=== PATIENT | male | born 1945 | race Caucasian/White ===

== ENCOUNTER 2018-10-02 08:10 | Observation (INO) | payer OTHER ==
--- NOTE | 2018-09-30 14:55 | NUR ---
BIO REP AWARE CALL BIO SPOKE WITH JORGE FOR PATIENT APPT UPGRADE ON 10-02-18
[2018-09-30 15:00] VITALS: BP 92/51
[2018-09-30 15:03] LABS: EOSINOPHILS % (AUTO) 0.5 % (0.0-8.0); HEMATOCRIT 40.5 % (42-54); LYMPHOCYTES % (AUTO) 19.5 % (21.0-51.0); MEAN CORPUSCULAR HEMOGLOBIN 32.2 pg (27.0-33.0); MEAN CORPUSCULAR HGB CONC 33.6 g/dL (32.0-36.0); MEAN CORPUSCULAR VOLUME 95.9 fL (79-99); MONOCYTES % (AUTO) 8.1 % (3.0-13.0); NEUTROPHILS % (AUTO) 70.9 % (40.0-77.0); NUCLEATED RED BLOOD CELLS 0.1 % (0.0-0.19); PLATELET COUNT (AUTO) 153 K/uL (130-400); RED BLOOD CELL COUNT(AUTO) 4.22 MIL/uL (4.50-6.20); RED CELL DISTRIBUTION WIDTH 13.6 % (11.0-15.5); WHITE BLOOD COUNT (AUTO) 8.3 K/uL (4.8-10.8)
[2018-09-30 15:12] LABS: CREATININE 1.3 mg/dL (0.5-1.5)
[2018-09-30 15:15] LABS: INR 0.98 (0.85-1.15); PARTIAL THROMBOPLASTIN TIME 28.7 SEC (26.3-35.5); PROTHROMBIN TIME 10.3 SEC (9.6-11.6)
[~2018-10-02] VITALS: Ht 176.5 cm; Wt 90.8 kg
[~2018-10-02 08:10] MED LIST: ASPI-555 PO; ATOR-2 PO; CEFAZOLIN SODIUM 1 GM VIAL IVP SCH; CHOL100040 PO; DOCU100C33 PO; ESCI10TA54 PO; FERR325T22 PO; FLUT16H NS; FURO20TA4 PO; LEVO100T12 PO; METO50TA18 PO; MULT-1285 PO; RANI150T7 PO; RANO10003 PO; SACU1TAB4 PO; SODIUM CHLORIDE 0.9% 1000ML 1,000 ML IV SCH; TRAZ-185 PO
[2018-10-02 08:20] VITALS: BP 96/63
--- NOTE | 2018-10-02 08:20 | NUR ---
PATIENT ARRIVED PATIENT ARRIVED TO DAY PATIENT ACCOMPANIED BY FRIEND (VANI) PATIENT AAOX3, RESPIRATIONS UNLABORED, VITAL SIGNS STABLE. PROCEDURE VERIFIED AND CONFIRMED WITH PATIENT. PROCEDURE EXPLAINED TO PATIENT AND PATIENT VERBALIZED UNDERSTANDING. HOSPITAL ROUTINE EXPLAINED TO PATIENT AND PATIENT'S FRIEND. ALL QUESTIONS/CONCERNS ADDRESSED.
[2018-10-02] MEDS ORDERED: MIDAZOLAM HCL 1 MG/ML 2ML VIAL ONE ×4 (12:07→13:50)
[2018-10-02] MEDS ORDERED: LIDOCAINE HCL 1% MDV 50ML VIAL ONE (12:07)
[2018-10-02] MEDS ORDERED: MEPERIDINE-PF 25 MG/ML SYG ONE ×4 (12:07→13:50)
[2018-10-02] MEDS ORDERED: CEFAZOLIN SODIUM 1 GM VIAL ONE ×2 (12:07→12:09)
[2018-10-02] MEDS ORDERED: BUPIVACAINE/PF 0.25% 50ML VIAL IJ ONE (12:07)
--- NOTE | 2018-10-02 12:10 | NUR ---
PATIENT TRANSFERRED PATIENT TAKEN TO [employer] VIA BED BY DWAYNE GILLETTE. NO FAMILY MEMBERS AT BEDSIDE.
[2018-10-02] MEDS ORDERED: IODIXANOL 320 MG/ML 100 ML VIAL ONE (12:35)
[2018-10-02 15:24] VITALS: BP 101/68
[2018-10-02] MEDS: ACETAMINOPHEN-CODEINE 300/30MG TAB PO PRN ×2 (18:03→22:05)
[2018-10-02 19:00] VITALS: BP 95/70
[2018-10-02] MEDS ORDERED: RANITIDINE HCL 15 MG/1 ML PO SCH (21:00)
[2018-10-02] MEDS: METOPROLOL TARTRATE 50 MG TAB PO SCH (21:00)
[2018-10-02] MEDS ORDERED: VALSARTAN PO SCH (21:00)
[2018-10-02] MEDS ORDERED: TRAZODONE HCL 50 MG TAB PO SCH (21:00)
[2018-10-02] MEDS ORDERED: ATORVASTATIN CALCIUM 40 MG TABLET PO SCH (21:00)
[2018-10-02] MEDS ORDERED: SACUBITRIL PO SCH (21:00)
[2018-10-02] MEDS: RANOLAZINE 500 MG TAB.SR.12H PO SCH (21:56)
[2018-10-02 21:58] VITALS: BP 89/51
[2018-10-02 23:00] VITALS: BP 89/51
[2018-10-03 03:00] VITALS: BP 77/49
[2018-10-03] MEDS ORDERED: SODIUM CHLORIDE 0.9% 500ML 500 ML IV ONE (03:33)
--- NOTE | 2018-10-03 03:44 | NUR ---
Vitals BP vitals trending down BP 77/49 HR 61. Hospitalist made aware. Approved to bolus 500ml Sodium Chloride.
[2018-10-03] MEDS ORDERED: LEVOTHYROXINE 100 MCG TABLET PO SCH (06:30)
[2018-10-03] MEDS ORDERED: METO-391 PO (07:05)
[2018-10-03 07:15] VITALS: BP 109/42
[2018-10-03] MEDS: RANOLAZINE 500 MG TAB.SR.12H PO SCH (08:22)
[2018-10-03] MEDS: METOPROLOL TARTRATE 50 MG TAB PO SCH (08:22)
[2018-10-03] MEDS ORDERED: FLUTICASONE PROPIONATE 50MCG/SPRAY 16 GM BOTTLE NS SCH (09:00)
[2018-10-03] MEDS ORDERED: MULTIVITAMIN WITH MINERALS TABLET PO SCH (09:00)
[2018-10-03] MEDS ORDERED: ASPIRIN 81 MG EC TAB PO SCH (09:00)
[2018-10-03] MEDS ORDERED: ***HM*** (Cholecalciferol (Vitamin D3) (Vitamin D3) 1,000 UNIT) PO SCH (09:00)
[2018-10-03] MEDS ORDERED: DOCUSATE SODIUM 100 MG CAP PO SCH (09:00)
[2018-10-03] MEDS ORDERED: CITALOPRAM 20 MG TABLET PO SCH (09:00)
[2018-10-03] MEDS ORDERED: FERROUS SULFATE 325 MG TABLET.DR PO SCH (09:00)
[2018-10-03] MEDS ORDERED: FUROSEMIDE 20 MG TABLET PO SCH (09:00)
--- NOTE | 2018-10-03 09:29 | NUR ---
[facility] Michael met with pt who lives with his significant other Swapna Kemp [phone]. pt reports he is independent of all ADLS, no in home care services or DME. Pt is [place] and gets care and meds thru [facility]. Pt requesting rx for changes in medications be faxed to [facility] at nd. Pt denies nd needs, plan is home at nd CM aware Addendum: 10/03/18 at 0931 by LUDMILA LEWIS Amended: Links added.
--- NOTE | 2018-10-03 11:40 | NUR ---
GAVE PATIENT DC INSTRUCTIONS. INSTRUCTED PATIENT ON NEW MEDICATION, FOLLOW UP APPOINTMENTS AND PHYSICAL RESTRICTIONS. PATIENT READY FOR DC. PATIENT TAKEN DOWNSTAIRS ON WHEELCHAIR.
== END 2018-10-03 12:30 | disposition home or self-care (01) ==
LOC: DAH 08:10 → 2AH 08:11 → DAH 08:11
PROVIDERS: ADMIT Internal Medicine; ATTEND Internal Medicine
DX: I25.5 Ischemic cardiomyopathy (principal); I44.0 Atrioventricular block, first degree; E03.9 Hypothyroidism, unspecified; E78.5 Hyperlipidemia, unspecified; I50.22 Chronic systolic (congestive) heart failure; G47.33 Obstructive sleep apnea (adult) (pediatric); I25.10 Atherosclerotic heart disease of native coronary artery without angina pectoris; I25.2 Old myocardial infarction; I25.82 Chronic total occlusion of coronary artery; I47.2 Ventricular tachycardia; Z87.891 Personal history of nicotine dependence; Z95.5 Presence of coronary angioplasty implant and graft; Z95.810 Presence of automatic (implantable) cardiac defibrillator; Z79.899 Other long term (current) drug therapy
CPT/HCPCS: 33225; 33264; 36415; 71045; 80048; 85025; 85610; 85730; 93005; A4606; C1769 ×2; C1882; C1900; G0378 ×28; J0690 ×2; J2175 ×4; J2250 ×4; J3490 ×2; J7030; J7040; Q9967; 33263; 99156; 99157

== ENCOUNTER → 2018-10-23 | Outpatient (CLI) | payer OTHER ==
[~2018-10-23] MED LIST changes: -CEFAZOLIN SODIUM 1 GM VIAL IVP SCH; +DRON400T2 PO; +METO-391 PO; -METO50TA18 PO; +SACU1TAB7 PO; -SODIUM CHLORIDE 0.9% 1000ML 1,000 ML IV SCH
== END | disposition home or self-care (01) ==
LOC: SHCH 09:14
PROVIDERS: ATTEND Internal Medicine Cardiovascular Disease
DX: I71.4 Abdominal aortic aneurysm, without rupture (principal)
CPT/HCPCS: 93978

== ENCOUNTER 2019-02-17 09:51 | Emergency (ER) | payer OTHER ==
[~2019-02-17 09:51] MED LIST changes: -RANI150T7 PO; -SACU1TAB4 PO
[2019-02-17 10:13] LABS: BASOPHILS % (AUTO) 0.3 % (0.0-5.0); EOSINOPHILS % (AUTO) 0.3 % (0.0-8.0); HEMATOCRIT 41.1 % (42-54); LYMPHOCYTES % (AUTO) 9.8 % (21.0-51.0); MEAN CORPUSCULAR HGB CONC 32.4 g/dL (32.0-36.0); MEAN CORPUSCULAR VOLUME 92.6 fL (79-99); MONOCYTES % (AUTO) 9.6 % (3.0-13.0); NEUTROPHILS % (AUTO) 79.7 % (40.0-77.0); PLATELET COUNT (AUTO) 143 K/uL (130-400); RED BLOOD CELL COUNT(AUTO) 4.44 MIL/uL (4.50-6.20); WHITE BLOOD COUNT (AUTO) 7.2 K/uL (4.8-10.8)
[2019-02-17 10:30] LABS: INR 1.01 (0.85-1.15); PARTIAL THROMBOPLASTIN TIME 27.9 SEC (26.3-35.5); PROTHROMBIN TIME 10.6 SEC (9.6-11.6)
[2019-02-17 10:43] LABS: CREATININE 1.5 mg/dL (0.5-1.5); POTASSIUM 4.6 mmol/L (3.5-5.1)
[2019-02-17 10:47] LABS: B-TYPE NATRIURETIC PEPTIDE 111 pg/mL (0-100)
[2019-02-17 10:48] LABS: ALBUMIN 3.7 g/dL (3.5-5.0); BILIRUBIN,TOTAL 0.6 mg/dL (0.2-1.0); TOTAL PROTEIN, SERUM 7.8 g/dL (6.0-8.3)
[2019-02-17 11:29] LABS: APPEARANCE,URINE Clear (CLEAR); BILIRUBIN,URINE Negative (NEGATIVE); COLOR,URINE Dark Yellow (YELLOW); GLUCOSE, URINE (UA) Negative (NEGATIVE); KETONES,URINE Negative (NEGATIVE); LEUKOCYTE ESTERASE ,URINE Negative (NEGATIVE); NITRATE,URINE Negative (NEGATIVE); OCCULT BLOOD,URINE Negative (NEGATIVE); PROTEIN,URINE Negative (NEGATIVE)
[2019-02-17 12:22] LABS: BACTERIA,URINE Rare /HPF (None Seen); RBC,URINE 0-1 /HPF (0-1); SQUAMOUS EPITHELIAL CELL,UR 0-2 /HPF (0-2); WBC,URINE 0-1 /HPF (0-1)
== END 2019-02-17 13:53 | disposition home or self-care (01) ==
LOC: EDH 09:51
DX: R06.01 Orthopnea (principal); R05 Cough; J44.9 Chronic obstructive pulmonary disease, unspecified; I11.0 Hypertensive heart disease with heart failure; I50.9 Heart failure, unspecified; I25.10 Atherosclerotic heart disease of native coronary artery without angina pectoris; Z95.0 Presence of cardiac pacemaker
CPT/HCPCS: 36415; 71045; 80053; 81001; 82550; 83880; 84484; 85025; 85378; 85610; 85730; 87804; 93005

== ENCOUNTER 2020-12-27 08:03 | Day surgery (SDC) | payer OTHER ==
[~2020-12-27] VITALS: Ht 175.3 cm; Wt 104.3 kg
[~2020-12-27 08:03] MED LIST changes: +0.9%NACL 1000ML 1,000 ML IV ONE; -ASPI-555 PO; +ASPI-556 PO; -DRON400T2 PO; +DRON400T7 PO; +ESCI-8 PO; -ESCI10TA54 PO
[2020-12-27 08:47] VITALS: BP 122/66
[2020-12-27] MEDS ORDERED: PROPOFOL 10 MG/ML 20ML VIAL IV ONE ×2 (10:50)
[2020-12-27 11:01] VITALS: BP 100/55
[2020-12-27 11:06] VITALS: BP 104/64
[2020-12-27 11:11] VITALS: BP 104/62
[2020-12-27 11:16] VITALS: BP 113/65
[2020-12-27 11:21] VITALS: BP 110/70
== END 2020-12-27 11:45 | disposition home or self-care (01) ==
LOC: DAH 08:03 → ENDO 08:03
PROVIDERS: ATTEND Internal Medicine Gastroenterology
DX: K59.00 Constipation, unspecified (principal); Z86.010 Personal history of colon polyps; R19.7 Diarrhea, unspecified; I48.91 Unspecified atrial fibrillation; D69.8 Other specified hemorrhagic conditions; I25.10 Atherosclerotic heart disease of native coronary artery without angina pectoris; E78.5 Hyperlipidemia, unspecified; E03.9 Hypothyroidism, unspecified; J44.9 Chronic obstructive pulmonary disease, unspecified; F32.9 Major depressive disorder, single episode, unspecified; F41.9 Anxiety disorder, unspecified; G47.30 Sleep apnea, unspecified; I11.0 Hypertensive heart disease with heart failure; I50.9 Heart failure, unspecified; E66.9 Obesity, unspecified; Z95.0 Presence of cardiac pacemaker; Z99.89 Dependence on other enabling machines and devices; Z20.822 Contact with and (suspected) exposure to COVID-19
CPT/HCPCS: 45378; 87635; 93005; A4215 ×2; A4221; A4222; A4223; A4606; A4620; A4657; A4663; C9803; J2704; J7030

== ENCOUNTER 2020-12-28 10:10 | Day surgery (SDC) | payer OTHER ==
[~2020-12-28] VITALS: Ht 175.3 cm; Wt 104.3 kg
[~2020-12-28 10:10] MED LIST changes: -0.9%NACL 1000ML 1,000 ML IV ONE; -DOCU100C33 PO; -FERR325T22 PO; -METO-391 PO; -TRAZ-185 PO
[2020-12-28] MEDS ORDERED: 0.9%NACL 1000ML 1,000 ML IV ONE (10:21)
[2020-12-28 10:33] VITALS: BP 140/80
[2020-12-28] MEDS ORDERED: PROPOFOL 10 MG/ML 20ML VIAL IV ONE (12:11)
[2020-12-28 12:42] VITALS: BP 107/71
[2020-12-28 12:47] VITALS: BP 113/57
[2020-12-28 12:52] VITALS: BP 119/63
== END 2020-12-28 13:10 | disposition home or self-care (01) ==
LOC: DAH 10:10 → ENDO 10:10
PROVIDERS: ATTEND Internal Medicine Gastroenterology
DX: Z12.11 Encounter for screening for malignant neoplasm of colon (principal); Z20.822 Contact with and (suspected) exposure to COVID-19; D12.2 Benign neoplasm of ascending colon; D12.3 Benign neoplasm of transverse colon; D12.4 Benign neoplasm of descending colon; D12.8 Benign neoplasm of rectum; K57.30 Diverticulosis of large intestine without perforation or abscess without bleeding; I11.0 Hypertensive heart disease with heart failure; I50.9 Heart failure, unspecified; G47.30 Sleep apnea, unspecified; E03.9 Hypothyroidism, unspecified; I25.10 Atherosclerotic heart disease of native coronary artery without angina pectoris; E66.01 Morbid (severe) obesity due to excess calories; I48.91 Unspecified atrial fibrillation; I25.2 Old myocardial infarction; J44.9 Chronic obstructive pulmonary disease, unspecified; E78.5 Hyperlipidemia, unspecified; F41.9 Anxiety disorder, unspecified; F32.9 Major depressive disorder, single episode, unspecified; Z82.49 Family history of ischemic heart disease and other diseases of the circulatory system; Z98.890 Other specified postprocedural states; Z68.36 Body mass index [BMI] 36.0-36.9, adult; Z86.010 Personal history of colon polyps; Z95.0 Presence of cardiac pacemaker
CPT/HCPCS: 45385; 88305; A4215 ×2; A4221; A4222; A4223; A4606; A4620; A4657; A4663; J2704; J7030

== ENCOUNTER 2022-09-23 08:37 | Inpatient (IN) | payer MEDICARE, OTHER ==
[~2022-09-23] VITALS: Ht 175.3 cm; Wt 74.5 kg
[2022-09-23] VITALS (13 sets, daily range): BP systolic 127–155; BP diastolic 66–95; PULSE 50–93; RESP 18–35; O2SAT 95–99
[2022-09-23 08:48] LABS: BASOPHILS # (AUTO) 0.03 K/uL (0.00-0.20); BASOPHILS % (AUTO) 0.4 % (0.0-5.0); EOSINOPHILS # (AUTO) 0.06 K/uL (0.00-0.70); EOSINOPHILS % (AUTO) 0.8 % (0.0-8.0); HEMATOCRIT 36.3 % (42-54); IMMATURE GRANULOCYTE ABSOLUTE 0.03 K/uL (0-1); LYMPHOCYTES # (AUTO) 1.1 K/uL (1.0-4.8); LYMPHOCYTES % (AUTO) 14.8 % (21.0-51.0); MEAN CORPUSCULAR HEMOGLOBIN 29.5 pg (27.0-33.0); MEAN CORPUSCULAR HGB CONC 33.6 g/dL (32.0-36.0); MEAN CORPUSCULAR VOLUME 87.9 fL (79-99); MONOCYTES # (AUTO) 0.7 K/uL (0.1-1.0); MONOCYTES % (AUTO) 9.2 % (3.0-13.0); NEUTROPHILS # (AUTO) 5.7 K/uL (1.8-7.7); NEUTROPHILS % (AUTO) 74.4 % (40.0-77.0); PLATELET COUNT (AUTO) 175 K/uL (130-400); RED BLOOD CELL COUNT(AUTO) 4.13 MIL/uL (4.50-6.20); RED CELL DISTRIBUTION WIDTH 15.3 % (11.0-15.5); WHITE BLOOD COUNT (AUTO) 7.7 K/uL (4.8-10.8)
[2022-09-23] MEDS ORDERED: SOLU-MEDROL 125MG VIAL IVP ONE (09:00)
[2022-09-23 09:02] LABS: CREATININE 0.9 mg/dL (0.5-1.5); POTASSIUM 3.2 mmol/L (3.5-5.1)
[2022-09-23 09:06] LABS: ALBUMIN 3.5 g/dL (3.5-5.0); BILIRUBIN,TOTAL 1.2 mg/dL (0.2-1.0); TOTAL PROTEIN, SERUM 6.7 g/dL (6.0-8.3)
[2022-09-23] MEDS ORDERED: FUROSEMIDE 40MG VIAL IV ONE (11:00)
[2022-09-23] MEDS ORDERED: IPRATROPIUM/ALBUTEROL SULFATE 3 ML SOLUTION IH ONE (11:30)
[2022-09-23 11:36] LABS: COVID19 (SARS ANTIGEN RAPID) PRESUMPTIVE NEGATIVE (NEGATIVE); INFLUENZA TYPE A Negative For Type A (NEGATIVE); INFLUENZA TYPE B Negative For Type B (NEGATIVE)
[2022-09-23 12:20] LABS: INR 1.04 (0.85-1.15)
[2022-09-23 12:29] LABS: ABG BASE EXCESS 0.7 mmol/L (-2.0-3.0); ABG HCO3 23.6 mmol/L (21.0-28.0); ABG OXYGEN SATURATION 94.9 % (95.0-99.0); ABG PCO2 33 mmHg (35-48); ABG PH 7.475 (7.35-7.450); CARBON MONOXIDE 1.2; VENT MODE, BG BIPAP 12-6 (ROOM AIR)
[2022-09-23] MEDS ORDERED: SILD100T PO (12:29)
[2022-09-23] MEDS ORDERED: FAMO20TA8 PO (12:29)
[2022-09-23] MEDS ORDERED: OXYB5TAB15 PO (12:29)
[2022-09-23] MEDS ORDERED: ESCI20TA38 PO (12:29)
[2022-09-23] MEDS ORDERED: SACU1TAB4 PO (12:29)
[2022-09-23] MEDS ORDERED: TRAM-355 PO (12:29)
[2022-09-23] MEDS ORDERED: BUSP10TA3 PO (12:29)
[2022-09-23] MEDS ORDERED: TRAZ-185 PO (12:29)
[2022-09-23] MEDS ORDERED: ALBU90AE IH (12:29)
[2022-09-23] MEDS ORDERED: METO-409 PO (12:29)
[2022-09-23 12:30] LABS: HEMOGLOBIN A1C 5.2 % (4.0-6.0)
[2022-09-23] MEDS: BUDESONIDE 0.5 MG/2 ML INH IH SCH ×2 (12:30→18:52)
[2022-09-23] MEDS ORDERED: POTASSIUM CHLORIDE 20MEQ/100ML 100 ML IV PRN (12:30)
[2022-09-23] MEDS ORDERED: MAGNESIUM 2GM PREMIX 50ML 50 ML IV SCH (12:30)
[2022-09-23] MEDS: CEFTRIAXONE 1G VIAL IVPB SCH ×2 (12:36→23:52)
[2022-09-23] MEDS ORDERED: NON-FORMULARY MEDICATION 1 EACH (Buspirone HCl 10 MG) PO SCH (14:00)
[2022-09-23] MEDS: BUSPIRONE HCL 5 MG TABLET PO SCH ×2 (14:01→20:32)
[2022-09-23] MEDS: MAGNESIUM 2GM PREMIX 50ML 50 ML IV SCH (15:31)
[2022-09-23] MEDS: KCL 20 MEQ ERTAB PO SCH ×2 (15:31→20:32)
[2022-09-23] MEDS: PANTOPRAZOLE 40 MG/VIAL IVP SCH (15:31)
[2022-09-23 15:47] LABS: MAGNESIUM 1.5 mg/dL (1.80-2.40); POTASSIUM 3.3 mmol/L (3.5-5.1)
[2022-09-23] MEDS: FUROSEMIDE 40MG VIAL IV SCH ×2 (15:47→23:52)
[2022-09-23 16:06] LABS: ADD UA MICROSCOPIC YES; APPEARANCE,URINE CLEAR (CLEAR); BILIRUBIN,URINE NEGATIVE (NEGATIVE); COLOR,URINE LIGHT-YELLOW (YELLOW); GLUCOSE, URINE (UA) NEGATIVE (NEGATIVE); KETONES,URINE 5 mg/dL (NEGATIVE); LEUKOCYTE ESTERASE ,URINE NEGATIVE Leu/uL (NEGATIVE); NITRATE,URINE NEGATIVE (NEGATIVE); OCCULT BLOOD,URINE NEGATIVE (NEGATIVE); PROTEIN,URINE NEGATIVE (NEGATIVE); UROBILINOGEN,URINE 0.2 mg/dL (0.2-1.0)
[2022-09-23 16:09] LABS: MUCUS,URINE RARE LPF (None Seen); RBC,URINE 0-1 /HPF (0-1); SQUAMOUS EPITHELIAL CELL,UR RARE /HPF (0-2); WBC,URINE 0-1 /HPF (0-1)
[2022-09-23] MEDS: IPRATROPIUM/ALBUTEROL SULFATE 3 ML SOLUTION IH SCH ×2 (18:52→23:18)
[2022-09-23] MEDS: ATORVASTATIN 40 MG TABLET PO SCH (20:31)
[2022-09-23] MEDS: TRAZODONE HCL 50 MG TAB PO SCH (20:31)
[2022-09-23] MEDS: DRONEDARONE HYDROCHLORIDE 400 MG TABLET PO SCH (20:31)
[2022-09-23] MEDS: METOPROLOL SUCCINATE 50 MG TAB.SR.24H PO SCH (20:32)
[2022-09-23 20:35] LABS: CREATININE 1.1 mg/dL (0.5-1.5); MAGNESIUM 2.2 mg/dL (1.80-2.40); POTASSIUM 3.7 mmol/L (3.5-5.1)
[2022-09-23] MEDS ORDERED: ATORVASTATIN CALCIUM PO SCH (21:00)
[2022-09-23] MEDS ORDERED: FAMOTIDINE 20MG TAB PO SCH (21:00)
[2022-09-23] MEDS ORDERED: NON-FORMULARY MEDICATION 1 EACH (Metoprolol Succinate 50 MG) PO SCH (21:00)
[2022-09-23] MEDS ORDERED: KCL 20 MEQ ERTAB PO PRN (22:30)
[2022-09-23] MEDS ORDERED: POTASSIUM CHLORIDE 10% ELIXIR 20 MEQ/15 ML UDCUP PO PRN (22:30)
[2022-09-24] VITALS (17 sets, daily range): BP systolic 124–143; BP diastolic 69–81; PULSE 50–85; RESP 18–23; O2SAT 95–100
[2022-09-24] MEDS ORDERED: LEVOTHYROXINE 112 MCG TABLET ONE (05:27)
[2022-09-24] MEDS ORDERED: NON-FORMULARY MEDICATION 1 EACH (Escitalopram Oxalate 20 MG) PO SCH (09:00)
[2022-09-24] MEDS ORDERED: CITALOPRAM 20 MG TABLET PO SCH (09:00)
[2022-09-24] MEDS: FLUTICASONE PROPIONATE 50MCG/SPRAY 16 GM BOTTLE NS SCH (09:00)
[2022-09-24 10:27] LABS: ALBUMIN 3.3 g/dL (3.5-5.0); BILIRUBIN,TOTAL 0.9 mg/dL (0.2-1.0); CREATININE 1.2 mg/dL (0.5-1.5); POTASSIUM 4.2 mmol/L (3.5-5.1); TOTAL PROTEIN, SERUM 6.9 g/dL (6.0-8.3)
[2022-09-24] MEDS: IPRATROPIUM/ALBUTEROL SULFATE 3 ML SOLUTION IH SCH ×4 (11:21→22:02)
[2022-09-24] MEDS ORDERED: SPIRONOLACTONE 25 MG TAB PO ONE (11:30)
[2022-09-24] MEDS: LEVOTHYROXINE 100 MCG TABLET PO SCH (12:22)
[2022-09-24] MEDS: ASPIRIN 81 MG EC TAB PO SCH (12:24)
[2022-09-24] MEDS: FUROSEMIDE 40MG VIAL IV SCH ×2 (12:24→15:07)
[2022-09-24] MEDS: DRONEDARONE HYDROCHLORIDE 400 MG TABLET PO SCH ×2 (12:25→21:24)
[2022-09-24] MEDS: BUSPIRONE HCL 5 MG TABLET PO SCH ×3 (12:25→21:24)
[2022-09-24] MEDS: METOPROLOL SUCCINATE 50 MG TAB.SR.24H PO SCH ×2 (12:26→21:24)
[2022-09-24] MEDS: OXYBUTYNIN CHLORIDE 5 MG TABLET PO SCH (12:26)
[2022-09-24] MEDS ORDERED: IPRATROPIUM/ALBUTEROL SULFATE 3 ML SOLUTION IH PRN (13:00)
[2022-09-24] MEDS ORDERED: SODIUM CHLORIDE 3% FOR INHALATION 4 ML/AMP VIAL.NEB IH ONE (14:32)
[2022-09-24 14:39] LABS: BASOPHILS # (AUTO) 0.01 K/uL (0.00-0.20); BASOPHILS % (AUTO) 0.2 % (0.0-5.0); HEMATOCRIT 33.9 % (42-54); IMMATURE GRANULOCYTE ABSOLUTE 0.01 K/uL (0-1); LYMPHOCYTES # (AUTO) 0.9 K/uL (1.0-4.8); LYMPHOCYTES % (AUTO) 14.3 % (21.0-51.0); MEAN CORPUSCULAR HEMOGLOBIN 29.9 pg (27.0-33.0); MEAN CORPUSCULAR HGB CONC 34.2 g/dL (32.0-36.0); MEAN CORPUSCULAR VOLUME 87.4 fL (79-99); MONOCYTES # (AUTO) 0.6 K/uL (0.1-1.0); NEUTROPHILS # (AUTO) 4.6 K/uL (1.8-7.7); NEUTROPHILS % (AUTO) 75.3 % (40.0-77.0); PLATELET COUNT (AUTO) 167 K/uL (130-400); RED BLOOD CELL COUNT(AUTO) 3.88 MIL/uL (4.50-6.20); RED CELL DISTRIBUTION WIDTH 15.4 % (11.0-15.5); WHITE BLOOD COUNT (AUTO) 6.1 K/uL (4.8-10.8)
[2022-09-24] MEDS: CEFTRIAXONE 1G VIAL IVPB SCH (15:23)
[2022-09-24] MEDS: PANTOPRAZOLE 40 MG/VIAL IVP SCH (15:25)
[2022-09-24] MEDS: KCL 20 MEQ ERTAB PO SCH ×2 (15:25→21:24)
[2022-09-24] MEDS: BUDESONIDE 0.5 MG/2 ML INH IH SCH (19:10)
[2022-09-24] MEDS ORDERED: NON-FORMULARY MEDICATION 1 EACH (Ranolazine (Ranexa) 1,000 MG) PO SCH (21:00)
[2022-09-24] MEDS: SACUBITRIL/VALSARTAN 1 EACH TABLET PO SCH (21:23)
[2022-09-24] MEDS: TRAZODONE HCL 50 MG TAB PO SCH (21:24)
[2022-09-24] MEDS: RANOLAZINE 500 MG TAB.SR.12H PO SCH (21:24)
[2022-09-24] MEDS: ATORVASTATIN 40 MG TABLET PO SCH (21:25)
[2022-09-24] MEDS: ENOXAPARIN SODIUM 40 MG/0.4 ML SYRINGE SQ SCH (21:25)
[2022-09-25] VITALS (17 sets, daily range): BP systolic 117–144; BP diastolic 61–76; PULSE 61–107; RESP 12–22; O2SAT 97–99
[2022-09-25 03:52] LABS: BASOPHILS # (AUTO) 0.04 K/uL (0.00-0.20); BASOPHILS % (AUTO) 0.4 % (0.0-5.0); EOSINOPHILS # (AUTO) 0.04 K/uL (0.00-0.70); EOSINOPHILS % (AUTO) 0.4 % (0.0-8.0); HEMATOCRIT 36.1 % (42-54); IMMATURE GRANULOCYTE ABSOLUTE 0.04 K/uL (0-1); LYMPHOCYTES # (AUTO) 1.4 K/uL (1.0-4.8); LYMPHOCYTES % (AUTO) 13.2 % (21.0-51.0); MEAN CORPUSCULAR HEMOGLOBIN 29.7 pg (27.0-33.0); MONOCYTES # (AUTO) 0.9 K/uL (0.1-1.0); MONOCYTES % (AUTO) 8.2 % (3.0-13.0); NEUTROPHILS # (AUTO) 8.1 K/uL (1.8-7.7); NEUTROPHILS % (AUTO) 77.4 % (40.0-77.0); PLATELET COUNT (AUTO) 166 K/uL (130-400); RED BLOOD CELL COUNT(AUTO) 4.01 MIL/uL (4.50-6.20); RED CELL DISTRIBUTION WIDTH 15.6 % (11.0-15.5); WHITE BLOOD COUNT (AUTO) 10.5 K/uL (4.8-10.8)
[2022-09-25 04:18] LABS: ALBUMIN 3.5 g/dL (3.5-5.0); CREATININE 1.3 mg/dL (0.5-1.5); MAGNESIUM 1.9 mg/dL (1.80-2.40); PHOSPHORUS 3.7 mg/dL (2.5-4.9); POTASSIUM 4.2 mmol/L (3.5-5.1); TOTAL PROTEIN, SERUM 7.3 g/dL (6.0-8.3)
[2022-09-25 04:19] LABS: B-TYPE NATRIURETIC PEPTIDE 834 pg/mL (0-100)
[2022-09-25] MEDS ORDERED: LEVOTHYROXINE 112 MCG TABLET ONE (04:35)
[2022-09-25] MEDS: LEVOTHYROXINE 100 MCG TABLET PO SCH (04:36)
[2022-09-25] MEDS: MAGNESIUM 2GM PREMIX 50ML 50 ML IV SCH (04:36)
[2022-09-25] MEDS: BUDESONIDE 0.5 MG/2 ML INH IH SCH ×2 (07:04→18:44)
[2022-09-25] MEDS: IPRATROPIUM/ALBUTEROL SULFATE 3 ML SOLUTION IH SCH ×4 (07:04→23:16)
[2022-09-25] MEDS: SPIRONOLACTONE 25 MG TAB PO SCH (08:46)
[2022-09-25] MEDS: ASPIRIN 81 MG EC TAB PO SCH (08:47)
[2022-09-25] MEDS: BUSPIRONE HCL 5 MG TABLET PO SCH ×4 (08:49→20:11)
[2022-09-25] MEDS: SACUBITRIL/VALSARTAN 1 EACH TABLET PO SCH ×2 (08:50→20:10)
[2022-09-25] MEDS: KCL 20 MEQ ERTAB PO SCH ×3 (08:50→20:11)
[2022-09-25] MEDS: METOPROLOL SUCCINATE 50 MG TAB.SR.24H PO SCH ×2 (08:51→20:11)
[2022-09-25] MEDS: OXYBUTYNIN CHLORIDE 5 MG TABLET PO SCH (08:51)
[2022-09-25] MEDS: DRONEDARONE HYDROCHLORIDE 400 MG TABLET PO SCH ×2 (08:52→20:11)
[2022-09-25] MEDS: ENOXAPARIN SODIUM 40 MG/0.4 ML SYRINGE SQ SCH (08:52)
[2022-09-25] MEDS: RANOLAZINE 500 MG TAB.SR.12H PO SCH ×2 (08:56→20:11)
[2022-09-25] MEDS: PREDNISONE 20 MG TABLET PO SCH (08:56)
[2022-09-25] MEDS ORDERED: FUROSEMIDE 40 MG TABLET PO SCH (09:00)
[2022-09-25] MEDS ORDERED: FUROSEMIDE 40MG VIAL IV SCH (09:00)
[2022-09-25] MEDS: FLUTICASONE PROPIONATE 50MCG/SPRAY 16 GM BOTTLE NS SCH (09:19)
[2022-09-25] MEDS: CEFTRIAXONE 1G VIAL IVPB SCH ×2 (11:28)
[2022-09-25] MEDS: PSYLLIUM SEED 1 EACH PACKET PO SCH (13:10)
[2022-09-25] MEDS ORDERED: PHARMACY COMMUNICATION MISC SCH ×2 (16:30→19:30)
[2022-09-25] MEDS: PANTOPRAZOLE 40 MG/VIAL IVP SCH (16:37)
[2022-09-25] MEDS: FUROSEMIDE 40MG VIAL IV SCH ×2 (16:38)
[2022-09-25] MEDS: ATORVASTATIN 40 MG TABLET PO SCH (20:10)
[2022-09-25] MEDS: TRAZODONE HCL 50 MG TAB PO SCH (20:11)
[2022-09-26] VITALS (18 sets, daily range): BP systolic 107–124; BP diastolic 55–78; PULSE 56–78; RESP 18–24; O2SAT 97–99
[2022-09-26] MEDS: FUROSEMIDE 40MG VIAL IV SCH ×2 (04:34→16:17)
[2022-09-26] MEDS: LEVOTHYROXINE 100 MCG TABLET PO SCH (05:59)
[2022-09-26] MEDS: BUDESONIDE 0.5 MG/2 ML INH IH SCH ×2 (06:28→19:05)
[2022-09-26] MEDS: IPRATROPIUM/ALBUTEROL SULFATE 3 ML SOLUTION IH SCH ×4 (06:28→23:20)
[2022-09-26] MEDS: SPIRONOLACTONE 25 MG TAB PO SCH (09:18)
[2022-09-26] MEDS: PREDNISONE 20 MG TABLET PO SCH (09:18)
[2022-09-26] MEDS: DOCUSATE SODIUM 100 MG CAP PO SCH (09:19)
[2022-09-26] MEDS: METOPROLOL SUCCINATE 50 MG TAB.SR.24H PO SCH ×2 (09:19→21:00)
[2022-09-26] MEDS: BUSPIRONE HCL 5 MG TABLET PO SCH ×3 (09:19→20:59)
[2022-09-26] MEDS: OXYBUTYNIN CHLORIDE 5 MG TABLET PO SCH (09:19)
[2022-09-26] MEDS: ASPIRIN 81 MG EC TAB PO SCH (09:19)
[2022-09-26] MEDS: PSYLLIUM SEED 1 EACH PACKET PO SCH (09:20)
[2022-09-26] MEDS: RANOLAZINE 500 MG TAB.SR.12H PO SCH ×2 (09:20→21:00)
[2022-09-26] MEDS: DRONEDARONE HYDROCHLORIDE 400 MG TABLET PO SCH ×2 (09:20→20:59)
[2022-09-26] MEDS: KCL 20 MEQ ERTAB PO SCH ×2 (09:20→21:00)
[2022-09-26] MEDS: SACUBITRIL/VALSARTAN 1 EACH TABLET PO SCH ×2 (09:20→20:59)
[2022-09-26] MEDS: FLUTICASONE PROPIONATE 50MCG/SPRAY 16 GM BOTTLE NS SCH (09:21)
[2022-09-26] MEDS: ENOXAPARIN SODIUM 40 MG/0.4 ML SYRINGE SQ SCH (09:23)
[2022-09-26 09:25] LABS: CREATININE 1.2 mg/dL (0.5-1.5); POTASSIUM 3.9 mmol/L (3.5-5.1)
[2022-09-26] MEDS: Escitalopram Oxalate 20 MG PO SCH (09:35)
[2022-09-26] MEDS: CEFTRIAXONE 1G VIAL IVPB SCH ×2 (12:24)
[2022-09-26] MEDS: PANTOPRAZOLE 40 MG/VIAL IVP SCH (16:16)
[2022-09-26] MEDS: TRAZODONE HCL 50 MG TAB PO SCH (20:59)
[2022-09-26] MEDS: ATORVASTATIN 40 MG TABLET PO SCH (21:00)
[2022-09-27] VITALS (14 sets, daily range): BP systolic 111–119; BP diastolic 55–69; PULSE 6–91; RESP 16–23; O2SAT 96–99
[2022-09-27] MEDS: CEFTRIAXONE 1G VIAL IVPB SCH ×2 (01:11→11:24)
[2022-09-27] MEDS: LEVOTHYROXINE 100 MCG TABLET PO SCH (05:46)
[2022-09-27] MEDS: FUROSEMIDE 40MG VIAL IV SCH (05:46)
[2022-09-27] MEDS: IPRATROPIUM/ALBUTEROL SULFATE 3 ML SOLUTION IH SCH ×3 (06:54→19:30)
[2022-09-27] MEDS: BUDESONIDE 0.5 MG/2 ML INH IH SCH ×2 (06:54→19:30)
[2022-09-27] MEDS: KCL 20 MEQ ERTAB PO SCH ×2 (09:00→21:00)
[2022-09-27] MEDS ORDERED: LACTULOSE 20 GM/30 ML UDCUP PO PRN (09:00)
[2022-09-27] MEDS: DRONEDARONE HYDROCHLORIDE 400 MG TABLET PO SCH ×2 (09:00→21:24)
[2022-09-27 09:08] LABS: CREATININE 1.5 mg/dL (0.5-1.5); POTASSIUM 4.5 mmol/L (3.5-5.1)
[2022-09-27] MEDS: SPIRONOLACTONE 25 MG TAB PO SCH (09:49)
[2022-09-27] MEDS: PSYLLIUM SEED 1 EACH PACKET PO SCH (09:50)
[2022-09-27] MEDS: DOCUSATE SODIUM 100 MG CAP PO SCH (09:50)
[2022-09-27] MEDS: BUSPIRONE HCL 5 MG TABLET PO SCH ×3 (09:50→21:24)
[2022-09-27] MEDS: RANOLAZINE 500 MG TAB.SR.12H PO SCH ×2 (09:50→21:24)
[2022-09-27] MEDS: PREDNISONE 20 MG TABLET PO SCH (09:50)
[2022-09-27] MEDS: ASPIRIN 81 MG EC TAB PO SCH (09:50)
[2022-09-27] MEDS: SACUBITRIL/VALSARTAN 1 EACH TABLET PO SCH ×2 (09:50→21:24)
[2022-09-27] MEDS: OXYBUTYNIN CHLORIDE 5 MG TABLET PO SCH (09:50)
[2022-09-27] MEDS: FLUTICASONE PROPIONATE 50MCG/SPRAY 16 GM BOTTLE NS SCH (09:53)
[2022-09-27] MEDS: Escitalopram Oxalate 20 MG PO SCH (09:54)
[2022-09-27] MEDS: METOPROLOL SUCCINATE 50 MG TAB.SR.24H PO SCH ×2 (09:55→21:24)
[2022-09-27] MEDS: ENOXAPARIN SODIUM 40 MG/0.4 ML SYRINGE SQ SCH (09:55)
[2022-09-27] MEDS: PANTOPRAZOLE 40 MG/VIAL IVP SCH (14:41)
[2022-09-27] MEDS ORDERED: LACTULOSE 20 GM/30 ML UDCUP PO ONE (15:15)
[2022-09-27] MEDS ORDERED: BISACODYL 10 MG SUPP.RECT RC ONE (15:15)
[2022-09-27] MEDS: LACTULOSE 20 GM/30 ML UDCUP PO SCH ×2 (21:00→21:24)
[2022-09-27] MEDS: TRAZODONE HCL 50 MG TAB PO SCH (21:24)
[2022-09-27] MEDS: ATORVASTATIN 40 MG TABLET PO SCH (21:25)
[2022-09-28] VITALS (8 sets, daily range): BP systolic 105–121; BP diastolic 56–77; PULSE 70–76; RESP 18–24; O2SAT 98–100
[2022-09-28] MEDS: CEFTRIAXONE 1G VIAL IVPB SCH ×2 (00:38→12:30)
[2022-09-28] MEDS: IPRATROPIUM/ALBUTEROL SULFATE 3 ML SOLUTION IH SCH ×3 (04:39→11:38)
[2022-09-28] MEDS: LEVOTHYROXINE 100 MCG TABLET PO SCH (05:39)
[2022-09-28] MEDS: BUDESONIDE 0.5 MG/2 ML INH IH SCH (06:48)
[2022-09-28] MEDS: LACTULOSE 20 GM/30 ML UDCUP PO SCH (09:00)
[2022-09-28 09:30] LABS: CREATININE 1.2 mg/dL (0.5-1.5)
[2022-09-28] MEDS: SACUBITRIL/VALSARTAN 1 EACH TABLET PO SCH (09:54)
[2022-09-28] MEDS: ASPIRIN 81 MG EC TAB PO SCH (09:54)
[2022-09-28] MEDS: PREDNISONE 20 MG TABLET PO SCH (09:54)
[2022-09-28] MEDS: BUSPIRONE HCL 5 MG TABLET PO SCH (09:55)
[2022-09-28] MEDS: METOPROLOL SUCCINATE 50 MG TAB.SR.24H PO SCH (09:55)
[2022-09-28] MEDS: DRONEDARONE HYDROCHLORIDE 400 MG TABLET PO SCH (09:55)
[2022-09-28] MEDS: KCL 20 MEQ ERTAB PO SCH (09:55)
[2022-09-28] MEDS: SPIRONOLACTONE 25 MG TAB PO SCH (09:56)
[2022-09-28] MEDS: OXYBUTYNIN CHLORIDE 5 MG TABLET PO SCH (09:56)
[2022-09-28] MEDS: PSYLLIUM SEED 1 EACH PACKET PO SCH (09:57)
[2022-09-28] MEDS: DOCUSATE SODIUM 100 MG CAP PO SCH (09:57)
[2022-09-28] MEDS: Escitalopram Oxalate 20 MG PO SCH (10:00)
[2022-09-28] MEDS: FLUTICASONE PROPIONATE 50MCG/SPRAY 16 GM BOTTLE NS SCH (10:07)
[2022-09-28] MEDS: ENOXAPARIN SODIUM 40 MG/0.4 ML SYRINGE SQ SCH (10:08)
[2022-09-28] MEDS: RANOLAZINE 500 MG TAB.SR.12H PO SCH (10:47)
[2022-09-28] MEDS ORDERED: SPIR25TA6 PO (11:33)
[2022-09-28] MEDS ORDERED: LACT PO (11:33)
[2022-09-28] MEDS ORDERED: PRED20B PO (11:33)
[2022-09-28] MEDS ORDERED: FURO40TA5 PO (11:33)
== END 2022-09-28 14:03 | disposition home or self-care (01) | DRG 291 ==
LOC: EDH 08:37 → EDHIP 11:56 → 2AH 13:29
PROVIDERS: ADMIT Internal Medicine; ATTEND Internal Medicine
PROC: 5A09357 Assistance with Respiratory Ventilation, Less than 24 Consecutive Hours, Continuous Positive Airway Pressure (ICD-10-PCS; principal; 2022-09-23)
PROC: 5A09357 Assistance with Respiratory Ventilation, Less than 24 Consecutive Hours, Continuous Positive Airway Pressure (ICD-10-PCS; 2022-09-24)
PROC: 5A09357 Assistance with Respiratory Ventilation, Less than 24 Consecutive Hours, Continuous Positive Airway Pressure (ICD-10-PCS; 2022-09-25)
PROC: 5A09357 Assistance with Respiratory Ventilation, Less than 24 Consecutive Hours, Continuous Positive Airway Pressure (ICD-10-PCS; 2022-09-26)
PROC: 5A09357 Assistance with Respiratory Ventilation, Less than 24 Consecutive Hours, Continuous Positive Airway Pressure (ICD-10-PCS; 2022-09-27)
DX: I11.0 Hypertensive heart disease with heart failure (principal); I50.43 Acute on chronic combined systolic (congestive) and diastolic (congestive) heart failure; J96.01 Acute respiratory failure with hypoxia; J44.1 Chronic obstructive pulmonary disease with (acute) exacerbation; Z20.822 Contact with and (suspected) exposure to COVID-19; I25.5 Ischemic cardiomyopathy; E03.9 Hypothyroidism, unspecified; E78.5 Hyperlipidemia, unspecified; E83.42 Hypomagnesemia; E87.6 Hypokalemia; I25.10 Atherosclerotic heart disease of native coronary artery without angina pectoris; I34.0 Nonrheumatic mitral (valve) insufficiency; I48.91 Unspecified atrial fibrillation; Z79.899 Other long term (current) drug therapy; Z82.49 Family history of ischemic heart disease and other diseases of the circulatory system; Z86.79 Personal history of other diseases of the circulatory system; I25.2 Old myocardial infarction; Z87.891 Personal history of nicotine dependence; Z95.810 Presence of automatic (implantable) cardiac defibrillator
CPT/HCPCS: 36415; 36600; 71045; 80048; 80053; 81001; 82435; 82803; 82947; 83036; 83605; 83735; 83880; 84100; 84132; 84145; 84295; 84439; 84443; 84481; 84484; 85018; 85025; 85378; 85610; 85651; 86140; 87071; 87077; 87186; 87205; 87426; 87804; 93005; 93306; 93970; 94640; 94660; 94664; 94760; 97039; C9113; G0378; J0696; J1650; J1940; J2930; J3475; J3480; G8980-CH; G8983-CI

== ENCOUNTER 2022-09-30 11:35 | Emergency (ER) | payer OTHER ==
[~2022-09-30 11:35] MED LIST changes: +ALBU90AE IH; +BUSP10TA3 PO; -ESCI-8 PO; +FAMO20TA8 PO; -FURO20TA4 PO; +FURO40TA5 PO; +LACT PO; +METO-409 PO; +OXYB5TAB15 PO; +PRED20B PO; +SACU1TAB4 PO; -SACU1TAB7 PO; +SILD100T PO; +SPIR25TA6 PO; +TRAZ-185 PO
[2022-10-01 10:52] LABS: ALANINE AMINOTRANSFERASE 71 U/L (12-78); ALBUMIN 3.9 g/dL (3.5-5.0); ALCOHOL, BLOOD < 3 mg/dL (0-10); ASPARTATE AMINOTRANSFERASE 35 U/L (10-37); BILIRUBIN,TOTAL 1.1 mg/dL (0.2-1.0); CARBON DIOXIDE 30 mmol/L (21-32); CHLORIDE 100 mmol/L (101-111); CREATININE 1.3 mg/dL (0.5-1.5); GLOMERULAR FILTR. RATE CALC 57 mL/min (>90); GLUCOSE,RANDOM 88 mg/dL (70-105); POTASSIUM 4.1 mmol/L (3.5-5.1); SODIUM SERUM 141 mmol/L (136-145); TOTAL PROTEIN, SERUM 8.4 g/dL (6.0-8.3); UREA NITROGEN, BLOOD 39 mg/dL (7-18)
[2022-10-01 10:58] LABS: BASOPHILS # (AUTO) 0.03 K/uL (0.00-0.20); BASOPHILS % (AUTO) 0.2 % (0.0-5.0); EOSINOPHILS # (AUTO) 0.02 K/uL (0.00-0.70); EOSINOPHILS % (AUTO) 0.2 % (0.0-8.0); HEMATOCRIT 44.6 % (42-54); IMMATURE GRANULOCYTE ABSOLUTE 0.06 K/uL (0-1); LYMPHOCYTES # (AUTO) 1.4 K/uL (1.0-4.8); LYMPHOCYTES % (AUTO) 10.9 % (21.0-51.0); MEAN CORPUSCULAR HEMOGLOBIN 28.9 pg (27.0-33.0); MEAN CORPUSCULAR HGB CONC 32.5 g/dL (32.0-36.0); MONOCYTES # (AUTO) 0.6 K/uL (0.1-1.0); MONOCYTES % (AUTO) 4.7 % (3.0-13.0); NEUTROPHILS # (AUTO) 10.3 K/uL (1.8-7.7); NEUTROPHILS % (AUTO) 83.5 % (40.0-77.0); PLATELET COUNT (AUTO) 240 K/uL (130-400); RED BLOOD CELL COUNT(AUTO) 5.01 MIL/uL (4.50-6.20); RED CELL DISTRIBUTION WIDTH 14.5 % (11.0-15.5); WHITE BLOOD COUNT (AUTO) 12.4 K/uL (4.8-10.8)
[2022-10-01 11:00] LABS: AMPHET/METH SCREEN,URINE NEGATIVE (NEGATIVE); BARBITURATE SCREEN, URINE NEGATIVE (NEGATIVE); BENZODIAZEPINES SCREEN,URINE NEGATIVE (NEGATIVE); CANNABINOID SCREEN,URINE POSITIVE (NEGATIVE); COCAINE SCREEN,URINE NEGATIVE (NEGATIVE); OPIATE SCREEN,URINE NEGATIVE (NEGATIVE); PHENCYCLIDINE SCREEN,URINE NEGATIVE (NEGATIVE)
== END 2022-09-30 17:05 | disposition home or self-care (01) ==
LOC: EDH 11:35
DX: F32.A Depression, unspecified (principal); R45.4 Irritability and anger; I11.0 Hypertensive heart disease with heart failure; J44.9 Chronic obstructive pulmonary disease, unspecified; I50.9 Heart failure, unspecified; Z98.890 Other specified postprocedural states
CPT/HCPCS: 36415; 80053; 80305; 84484; 85025; 93005

== ENCOUNTER 2023-01-09 06:11 | Day surgery (SDC) | payer OTHER ==
[2023-01-07 12:39] LABS: BASOPHILS # (AUTO) 0.02 K/uL (0.00-0.20); BASOPHILS % (AUTO) 0.3 % (0.0-5.0); EOSINOPHILS # (AUTO) 0.03 K/uL (0.00-0.70); EOSINOPHILS % (AUTO) 0.5 % (0.0-8.0); HEMATOCRIT 34.9 % (42-54); IMMATURE GRANULOCYTE ABSOLUTE 0.01 K/uL (0-1); LYMPHOCYTES # (AUTO) 1.5 K/uL (1.0-4.8); LYMPHOCYTES % (AUTO) 22.6 % (21.0-51.0); MEAN CORPUSCULAR HEMOGLOBIN 30.5 pg (27.0-33.0); MEAN CORPUSCULAR HGB CONC 31.8 g/dL (32.0-36.0); MEAN CORPUSCULAR VOLUME 95.9 fL (79-99); MONOCYTES # (AUTO) 0.7 K/uL (0.1-1.0); MONOCYTES % (AUTO) 10.3 % (3.0-13.0); NEUTROPHILS # (AUTO) 4.4 K/uL (1.8-7.7); NEUTROPHILS % (AUTO) 66.1 % (40.0-77.0); PLATELET COUNT (AUTO) 149 K/uL (130-400); RED BLOOD CELL COUNT(AUTO) 3.64 MIL/uL (4.50-6.20); WHITE BLOOD COUNT (AUTO) 6.6 K/uL (4.8-10.8)
[2023-01-07 12:40] LABS: CREATININE 1.1 mg/dL (0.5-1.5); POTASSIUM 5.1 mmol/L (3.5-5.1)
[2023-01-07 12:55] VITALS: BP 117/61; PULSE 57; RESP 14
[~2023-01-09] VITALS: Ht 175.3 cm; Wt 94.2 kg
[2023-01-09] VITALS (7 sets, daily range): BP systolic 103–145; BP diastolic 48–59; PULSE 60–78; RESP 14–22
[~2023-01-09 06:11] MED LIST changes: +AEC81 PO; -ALBU90AE IH; +APIX5TAB PO; -ASPI-556 PO; -CHOL100040 PO; +EMPA25TA PO; +ESCI10TA PO; -FAMO20TA8 PO; -FLUT16H NS; -FURO40TA5 PO; +GABA300C PO; -LACT PO; -MULT-1285 PO; +MV-M1CAP26 PO; -OXYB5TAB15 PO; -PRED20B PO; -RANO10003 PO; +SACU1TAB PO; -SACU1TAB4 PO; -SILD100T PO; -TRAZ-185 PO
[2023-01-09] MEDS ORDERED: 0.9%NACL 1000ML 1,000 ML IV ONE ×2 (07:11→07:51)
[2023-01-09] MEDS ORDERED: LIDOCAINE PF 100MG/5ML (2%) SYRINGE 5ML ONE (08:04)
[2023-01-09] MEDS ORDERED: PROPOFOL 10 MG/ML 20ML VIAL IV ONE (08:05)
[2023-01-09] MEDS ORDERED: PHENYLEPHRINE HCL 10 MG/ML 1ML VIAL IV ONE (08:05)
[2023-01-10] MEDS ORDERED: FLUT16H NS ×2 (06:42)
[2023-01-10] MEDS ORDERED: LEVO112T7 PO ×2 (06:42)
[2023-01-10] MEDS ORDERED: MULT-1224 PO ×2 (06:42)
== END 2023-01-09 10:45 | disposition home or self-care (01) ==
LOC: DAH 06:11
PROVIDERS: ATTEND Internal Medicine Cardiovascular Disease
DX: I48.19 Other persistent atrial fibrillation (principal); I25.5 Ischemic cardiomyopathy; I25.10 Atherosclerotic heart disease of native coronary artery without angina pectoris; E78.5 Hyperlipidemia, unspecified; I50.22 Chronic systolic (congestive) heart failure; N18.32 Chronic kidney disease, stage 3b; I25.2 Old myocardial infarction; E03.9 Hypothyroidism, unspecified; G47.33 Obstructive sleep apnea (adult) (pediatric); Z79.01 Long term (current) use of anticoagulants; Z79.899 Other long term (current) drug therapy; Z98.890 Other specified postprocedural states; Z90.89 Acquired absence of other organs; Z87.891 Personal history of nicotine dependence; Z95.5 Presence of coronary angioplasty implant and graft; Z79.890 Hormone replacement therapy; Z82.49 Family history of ischemic heart disease and other diseases of the circulatory system
CPT/HCPCS: 80048; 85025; 36415; 92960; 82948; 93005 ×2; J7030 ×2; J2001; J2704; J2371; A4620; A4215; A4657; A4222; A4221; A4663; A4216; A4606; A4223 ×3; 99152; G0500; J3490

== ENCOUNTER 2023-01-10 02:15 | Observation (INO) | payer OTHER ==
[2023-01-10] VITALS (11 sets, daily range): BP systolic 95–117; BP diastolic 50–55; PULSE 59–75; RESP 18–26; O2SAT 94–100
[~2023-01-10] VITALS: Ht 177.8 cm; Wt 90.3 kg
[2023-01-10] MEDS ORDERED: IPRATROPIUM/ALBUTEROL SULFATE 3 ML SOLUTION IH ONE ×3 (02:34→05:30)
[2023-01-10] MEDS ORDERED: MAGNESIUM 2GM PREMIX 50ML 50 ML IV ONE (02:35)
[2023-01-10] MEDS ORDERED: SOLU-MEDROL 125MG VIAL ONE (02:35)
[2023-01-10 02:36] LABS: BASOPHILS # (AUTO) 0.02 K/uL (0.00-0.20); BASOPHILS % (AUTO) 0.3 % (0.0-5.0); EOSINOPHILS # (AUTO) 0.03 K/uL (0.00-0.70); EOSINOPHILS % (AUTO) 0.4 % (0.0-8.0); HEMATOCRIT 34.4 % (42-54); IMMATURE GRANULOCYTE ABSOLUTE 0.02 K/uL (0-1); LYMPHOCYTES # (AUTO) 1.1 K/uL (1.0-4.8); LYMPHOCYTES % (AUTO) 14.2 % (21.0-51.0); MEAN CORPUSCULAR HEMOGLOBIN 30.4 pg (27.0-33.0); MEAN CORPUSCULAR HGB CONC 32.3 g/dL (32.0-36.0); MEAN CORPUSCULAR VOLUME 94.2 fL (79-99); MONOCYTES # (AUTO) 0.7 K/uL (0.1-1.0); MONOCYTES % (AUTO) 8.3 % (3.0-13.0); NEUTROPHILS # (AUTO) 6.1 K/uL (1.8-7.7); NEUTROPHILS % (AUTO) 76.5 % (40.0-77.0); PLATELET COUNT (AUTO) 154 K/uL (130-400); RED BLOOD CELL COUNT(AUTO) 3.65 MIL/uL (4.50-6.20); RED CELL DISTRIBUTION WIDTH 14.1 % (11.0-15.5)
[2023-01-10 02:48] LABS: CREATININE 1.3 mg/dL (0.5-1.5); POTASSIUM 4.3 mmol/L (3.5-5.1)
[2023-01-10 02:52] LABS: ALBUMIN 3.4 g/dL (3.5-5.0); BILIRUBIN,TOTAL 0.7 mg/dL (0.2-1.0); TOTAL PROTEIN, SERUM 7.6 g/dL (6.0-8.3)
[2023-01-10] MEDS ORDERED: MAGNESIUM 2GM PREMIX 50ML 50 ML IV SCH (03:00)
[2023-01-10] MEDS ORDERED: SOLU-MEDROL 125MG VIAL IVP ONE (03:00)
[2023-01-10 03:04] LABS: SARS-CoV-2, RNA, NAAT NEGATIVE SARS CoV-2 (NEGATIVE)
[2023-01-10 03:07] LABS: INFLUENZA TYPE A Negative For Type A (NEGATIVE); INFLUENZA TYPE B Negative For Type B (NEGATIVE)
[2023-01-10 03:54] LABS: ABG BASE EXCESS -1.9 mmol/L (-2.0-3.0); ABG HCO3 24.3 mmol/L (21.0-28.0); ABG OXYGEN SATURATION 32.3 % (95.0-99.0); ABG PCO2 46 mmHg (35-48); ABG PH 7.338 (7.35-7.450); PO2, ARTERIAL BG < 45.0 mmHg (83.0-108.0); VENT MODE, BG NC (ROOM AIR)
[2023-01-10] MEDS ORDERED: FUROSEMIDE 40MG VIAL IVP ONE (04:00)
[2023-01-10 05:12] LABS: ABG BASE EXCESS -1.4 mmol/L (-2.0-3.0); ABG HCO3 21.6 mmol/L (21.0-28.0); ABG OXYGEN SATURATION 87.4 % (95.0-99.0); ABG PCO2 31 mmHg (35-48); CARBON MONOXIDE 1.3; HHb 12.4; PO2, ARTERIAL BG 52.1 mmHg (83.0-108.0); VENT MODE, BG NC (ROOM AIR)
[2023-01-10] MEDS ORDERED: FLUT16H NS ×2 (06:42)
[2023-01-10] MEDS ORDERED: MULT-1224 PO ×2 (06:42)
[2023-01-10] MEDS ORDERED: LEVO112T7 PO ×2 (06:42)
[2023-01-10] MEDS ORDERED: KCL 20 MEQ ERTAB PO PRN (08:00)
[2023-01-10] MEDS ORDERED: MAGNESIUM 2GM PREMIX 50ML 50 ML IV PRN (08:00)
[2023-01-10] MEDS ORDERED: FLUTICASONE PROPIONATE 50MCG/SPRAY 16 GM BOTTLE NS SCH ×2 (08:00)
[2023-01-10] MEDS ORDERED: GLUCAGON 1MG KIT 1 MG ML IM PRN (08:00)
[2023-01-10] MEDS ORDERED: ONDANSETRON 4MG INJ IV PRN (08:00)
[2023-01-10] MEDS ORDERED: MAG/ALUM/SIMETH 30 ML UDCUP PO PRN (08:00)
[2023-01-10] MEDS ORDERED: POTASSIUM CHLORIDE 10% ELIXIR 20 MEQ/15 ML UDCUP PO PRN (08:00)
[2023-01-10] MEDS ORDERED: DEXTROSE 50%-WATER 50 ML DISP.SYRIN IV PRN (08:00)
[2023-01-10] MEDS ORDERED: POTASSIUM CHLORIDE 20MEQ/100ML 100 ML IV PRN (08:00)
[2023-01-10] MEDS ORDERED: LACTULOSE 20 GM/30 ML UDCUP PO PRN (08:00)
[2023-01-10] MEDS ORDERED: HYDROCODONE/ACETAMINOPHEN 5/325 MG TAB PO PRN ×2 (08:00)
[2023-01-10] MEDS ORDERED: DiphenhydrAMINE HCL 50 MG/ML VIAL IV PRN (08:00)
[2023-01-10] MEDS ORDERED: NITROGLYCERIN 0.4 MG SL TAB SL PRN (08:00)
[2023-01-10] MEDS ORDERED: ACETAMINOPHEN 325 MG TAB PO PRN ×2 (08:00)
[2023-01-10] MEDS ORDERED: DIPHENHYDRAMINE HCL 25 MG CAPSULE PO PRN (08:00)
[2023-01-10] MEDS ORDERED: GUAIFENESIN-DM 200/20 MG 10 ML PO PRN (08:00)
[2023-01-10] MEDS ORDERED: HYDROMORPHONE 0.5 MG SYG (0.5MG/0.5ML) IV PRN (08:30)
[2023-01-10] MEDS ORDERED: ESCITALOPRAM OXALATE 30 MG PO SCH (09:00)
[2023-01-10] MEDS: PHARMACY COMMUNICATION MISC SCH ×2 (09:00→10:00)
[2023-01-10] MEDS ORDERED: FAMOTIDINE 20MG VIAL IV PRN (09:00)
[2023-01-10] MEDS: ZOSYN 3.375GM+NS 50ML 50 ML IV SCH ×2 (09:00→17:27)
[2023-01-10] MEDS ORDERED: HEPARIN 5,000 UNIT VIAL SQ SCH (09:00)
[2023-01-10] MEDS ORDERED: NON-FORMULARY MEDICATION 1 EACH (Metoprolol Succinate 50 MG) PO SCH (09:00)
[2023-01-10] MEDS: METOPROLOL SUCCINATE 50 MG TAB.SR.24H PO SCH ×2 (10:14→20:10)
[2023-01-10] MEDS: BUSPIRONE HCL 5 MG TABLET PO SCH ×3 (10:14→20:14)
[2023-01-10] MEDS: MULTIVITAMIN TABLET PO SCH (10:14)
[2023-01-10] MEDS: DRONEDARONE HYDROCHLORIDE 400 MG TABLET PO SCH ×2 (10:14→20:10)
[2023-01-10] MEDS: SACUBITRIL/VALSARTAN 1 EACH TABLET PO SCH ×2 (10:15→20:10)
[2023-01-10] MEDS: APIXABAN 5 MG TABLET PO SCH ×2 (10:15→20:09)
[2023-01-10] MEDS: ASPIRIN 81 MG EC TAB PO SCH (10:15)
[2023-01-10] MEDS: FAMOTIDINE 20MG TAB PO SCH (10:15)
[2023-01-10] MEDS ORDERED: INSULIN HUMULIN R 100 UNIT/ML 3ML SQ SCH (11:30)
[2023-01-10] MEDS ORDERED: IPRATROPIUM/ALBUTEROL SULFATE 3 ML SOLUTION IH SCH (12:00)
[2023-01-10] MEDS ORDERED: LACTATED RINGERS 1000ML IV ONE (16:00)
[2023-01-10] MEDS: IPRATROPIUM/ALBUTEROL SULFATE 3 ML SOLUTION IH PRN (19:09)
[2023-01-10] MEDS ORDERED: ATORVASTATIN CALCIUM PO SCH (21:00)
[2023-01-10] MEDS ORDERED: GABAPENTIN 300 MG CAPSULE PO SCH (21:00)
[2023-01-10] MEDS: FUROSEMIDE 40MG VIAL IVP SCH (21:00)
[2023-01-10] MEDS ORDERED: SPIRONOLACTONE 25 MG TAB PO SCH (21:00)
[2023-01-10] MEDS ORDERED: ATORVASTATIN 40 MG TABLET PO SCH (21:00)
[2023-01-11] VITALS (9 sets, daily range): BP systolic 101–122; BP diastolic 48–65; PULSE 59–92; RESP 16–21; O2SAT 95–98
[2023-01-11 04:18] LABS: BASOPHILS # (AUTO) 0.01 K/uL (0.00-0.20); BASOPHILS % (AUTO) 0.1 % (0.0-5.0); HEMATOCRIT 29.3 % (42-54); IMMATURE GRANULOCYTE ABSOLUTE 0.04 K/uL (0-1); LYMPHOCYTES # (AUTO) 1.1 K/uL (1.0-4.8); LYMPHOCYTES % (AUTO) 12.7 % (21.0-51.0); MEAN CORPUSCULAR HEMOGLOBIN 30.2 pg (27.0-33.0); MEAN CORPUSCULAR HGB CONC 32.4 g/dL (32.0-36.0); MONOCYTES # (AUTO) 0.8 K/uL (0.1-1.0); NEUTROPHILS # (AUTO) 6.5 K/uL (1.8-7.7); NEUTROPHILS % (AUTO) 77.7 % (40.0-77.0); PLATELET COUNT (AUTO) 137 K/uL (130-400); RED BLOOD CELL COUNT(AUTO) 3.15 MIL/uL (4.50-6.20); RED CELL DISTRIBUTION WIDTH 14.3 % (11.0-15.5); WHITE BLOOD COUNT (AUTO) 8.4 K/uL (4.8-10.8)
[2023-01-11 04:31] LABS: INR 1.04 (0.85-1.15)
[2023-01-11 04:33] LABS: PARTIAL THROMBOPLASTIN TIME 33.2 SEC (26.3-35.5)
[2023-01-11 04:34] LABS: HEMOGLOBIN A1C 4.9 % (4.0-6.0)
[2023-01-11 04:37] LABS: % IRON SATURATION 7.7 % (30-44)
[2023-01-11 04:42] LABS: B-TYPE NATRIURETIC PEPTIDE 713 pg/mL (0-100)
[2023-01-11 04:48] LABS: ALBUMIN 3.1 g/dL (3.5-5.0); BILIRUBIN,TOTAL 0.9 mg/dL (0.2-1.0); CREATININE 1.2 mg/dL (0.5-1.5); MAGNESIUM 2.7 mg/dL (1.80-2.40); PHOSPHORUS 5.6 mg/dL (2.5-4.9); POTASSIUM 4.2 mmol/L (3.5-5.1); THYROID STIMULATING HORMONE 1.93 uIU/mL (0.36-3.74); TOTAL PROTEIN, SERUM 7.2 g/dL (6.0-8.3)
[2023-01-11] MEDS: IPRATROPIUM/ALBUTEROL SULFATE 3 ML SOLUTION IH PRN ×2 (06:28→11:18)
[2023-01-11] MEDS ORDERED: LEVOTHYROXINE 112 MCG TABLET PO SCH (06:30)
[2023-01-11] MEDS: FUROSEMIDE 40MG VIAL IVP SCH (06:54)
[2023-01-11] MEDS: BUSPIRONE HCL 5 MG TABLET PO SCH ×2 (09:48→14:00)
[2023-01-11] MEDS: DRONEDARONE HYDROCHLORIDE 400 MG TABLET PO SCH (09:48)
[2023-01-11] MEDS: FAMOTIDINE 20MG TAB PO SCH (09:48)
[2023-01-11] MEDS: MULTIVITAMIN TABLET PO SCH (09:48)
[2023-01-11] MEDS: ASPIRIN 81 MG EC TAB PO SCH (09:48)
[2023-01-11] MEDS: METOPROLOL SUCCINATE 50 MG TAB.SR.24H PO SCH (09:48)
[2023-01-11] MEDS: SACUBITRIL/VALSARTAN 1 EACH TABLET PO SCH (09:48)
[2023-01-11] MEDS: APIXABAN 5 MG TABLET PO SCH (09:50)
[2023-01-11] MEDS ORDERED: FUROSEMIDE 40MG VIAL IVP SCH (18:00)
== END 2023-01-11 17:00 | disposition home or self-care (01) ==
LOC: EDH 02:15 → EDHIP 07:40 → 4CH 08:35
PROVIDERS: ADMIT Internal Medicine; ATTEND Internal Medicine
DX: J96.01 Acute respiratory failure with hypoxia (principal); Z20.822 Contact with and (suspected) exposure to COVID-19; J81.0 Acute pulmonary edema; I13.0 Hypertensive heart and chronic kidney disease with heart failure and stage 1 through stage 4 chronic kidney disease, or unspecified chronic kidney disease; I50.43 Acute on chronic combined systolic (congestive) and diastolic (congestive) heart failure; N18.31 Chronic kidney disease, stage 3a; D68.59 Other primary thrombophilia; E44.1 Mild protein-calorie malnutrition; E03.9 Hypothyroidism, unspecified; E78.2 Mixed hyperlipidemia; D64.9 Anemia, unspecified; F32.A Depression, unspecified; F41.9 Anxiety disorder, unspecified; G47.33 Obstructive sleep apnea (adult) (pediatric); I25.10 Atherosclerotic heart disease of native coronary artery without angina pectoris; I25.2 Old myocardial infarction; I25.5 Ischemic cardiomyopathy; I25.82 Chronic total occlusion of coronary artery; I34.0 Nonrheumatic mitral (valve) insufficiency; I47.20 Ventricular tachycardia, unspecified; I48.0 Paroxysmal atrial fibrillation; I48.92 Unspecified atrial flutter; J44.1 Chronic obstructive pulmonary disease with (acute) exacerbation; Z79.01 Long term (current) use of anticoagulants; Z79.899 Other long term (current) drug therapy; Z86.79 Personal history of other diseases of the circulatory system; Z87.891 Personal history of nicotine dependence; Z95.5 Presence of coronary angioplasty implant and graft; Z95.810 Presence of automatic (implantable) cardiac defibrillator; Z79.82 Long term (current) use of aspirin; Z90.49 Acquired absence of other specified parts of digestive tract; Z98.890 Other specified postprocedural states; Z68.28 Body mass index [BMI] 28.0-28.9, adult
CPT/HCPCS: 96365; 96366; 96375; 99285; 82435; 82947; 84484; 84132; 84295; 80053 ×2; 82803 ×2; 83880 ×2; 85025 ×2; 85018; 87804 ×2; 82948 ×5; 83605; 36415 ×2; 87635; 71045; 36600 ×2; 94640 ×5; 94660 ×2; 94664; 96376; 83036; 84443; 83540; 83550; 83735; 84100; 85610; 85730; 94760 ×2; 84145; G0378 ×32; C9803; J3475; J2930; J2543 ×2; J1940 ×3

== ENCOUNTER 2023-04-05 11:56 | Emergency (ER) | payer OTHER ==
[~2023-04-05] VITALS: Ht 177.8 cm; Wt 90.7 kg
[~2023-04-05 11:56] MED LIST changes: +FLUT16H NS; +LEVO112T7 PO; +MULT-1224 PO
[2023-04-05 13:23] LABS: INFLUENZA TYPE A Negative For Type A (NEGATIVE); INFLUENZA TYPE B Negative For Type B (NEGATIVE)
[2023-04-05 13:34] LABS: BASOPHILS # (AUTO) 0.03 K/uL (0.00-0.20); BASOPHILS % (AUTO) 0.4 % (0.0-5.0); HEMATOCRIT 35.6 % (42-54); IMMATURE GRANULOCYTE ABSOLUTE 0.02 K/uL (0-1); LYMPHOCYTES # (AUTO) 1.4 K/uL (1.0-4.8); LYMPHOCYTES % (AUTO) 19.3 % (21.0-51.0); MEAN CORPUSCULAR HEMOGLOBIN 27.5 pg (27.0-33.0); MEAN CORPUSCULAR HGB CONC 32.6 g/dL (32.0-36.0); MEAN CORPUSCULAR VOLUME 84.4 fL (79-99); MONOCYTES # (AUTO) 1.1 K/uL (0.1-1.0); MONOCYTES % (AUTO) 14.2 % (3.0-13.0); NEUTROPHILS # (AUTO) 4.9 K/uL (1.8-7.7); NEUTROPHILS % (AUTO) 65.8 % (40.0-77.0); PLATELET COUNT (AUTO) 113 K/uL (130-400); RED BLOOD CELL COUNT(AUTO) 4.22 MIL/uL (4.50-6.20); RED CELL DISTRIBUTION WIDTH 15.8 % (11.0-15.5); WHITE BLOOD COUNT (AUTO) 7.5 K/uL (4.8-10.8)
[2023-04-05 13:39] LABS: SARS-CoV-2, RNA, NAAT POSITIVE SARS CoV-2 (NEGATIVE)
[2023-04-05 13:41] LABS: CREATININE 1.4 mg/dL (0.5-1.5)
[2023-04-05 14:00] LABS: B-TYPE NATRIURETIC PEPTIDE 1070 pg/mL (0-100)
[2023-04-05] MEDS ORDERED: NIRM1TAB7 PO (15:49)
[2023-04-05] MEDS ORDERED: BENZ-39 PO (15:50)
[2023-04-05] MEDS ORDERED: GUAI600T50 PO (15:51)
[2023-04-05 16:12] VITALS: BP 141/74; PULSE 84; RESP 16; O2SAT 99
== END 2023-04-05 16:19 | disposition home or self-care (01) ==
LOC: EDH 11:56
DX: U07.1 COVID-19 (principal); Z79.01 Long term (current) use of anticoagulants; Z79.82 Long term (current) use of aspirin; Z79.84 Long term (current) use of oral hypoglycemic drugs; Z79.890 Hormone replacement therapy; Z79.899 Other long term (current) drug therapy; Z95.810 Presence of automatic (implantable) cardiac defibrillator
CPT/HCPCS: 36415; 71045; 80048; 83880; 85025; 87635; 87804

== ENCOUNTER 2023-09-10 05:41 | Observation (INO) | payer OTHER ==
[2023-09-06 08:51] LABS: BASOPHILS # (AUTO) 0.06 K/uL (0.00-0.20); BASOPHILS % (AUTO) 0.8 % (0.0-5.0); EOSINOPHILS # (AUTO) 0.14 K/uL (0.00-0.70); EOSINOPHILS % (AUTO) 1.9 % (0.0-8.0); HEMATOCRIT 44.1 % (42-54); IMMATURE GRANULOCYTE ABSOLUTE 0.02 K/uL (0-1); LYMPHOCYTES # (AUTO) 1.9 K/uL (1.0-4.8); MEAN CORPUSCULAR HEMOGLOBIN 28.1 pg (27.0-33.0); MEAN CORPUSCULAR HGB CONC 31.7 g/dL (32.0-36.0); MEAN CORPUSCULAR VOLUME 88.4 fL (79-99); MONOCYTES # (AUTO) 0.8 K/uL (0.1-1.0); MONOCYTES % (AUTO) 10.5 % (3.0-13.0); NEUTROPHILS # (AUTO) 4.6 K/uL (1.8-7.7); NEUTROPHILS % (AUTO) 61.5 % (40.0-77.0); PLATELET COUNT (AUTO) 148 K/uL (130-400); RED BLOOD CELL COUNT(AUTO) 4.99 MIL/uL (4.50-6.20); WHITE BLOOD COUNT (AUTO) 7.5 K/uL (4.8-10.8)
[2023-09-06 08:58] LABS: CREATININE 1.2 mg/dL (0.5-1.3); POTASSIUM 4.3 mmol/L (3.5-5.1)
[2023-09-06 08:59] LABS: INR 1.15 (0.85-1.15); PROTHROMBIN TIME 12.3 SEC (9.6-11.6)
[2023-09-06 09:00] LABS: PARTIAL THROMBOPLASTIN TIME 37.5 SEC (26.3-35.5)
[2023-09-06 09:34] VITALS: BP 108/53; PULSE 59; RESP 18
[~2023-09-10] VITALS: Ht 175.3 cm; Wt 90.5 kg
[2023-09-10] VITALS (21 sets, daily range): BP systolic 97–119; BP diastolic 50–79; PULSE 35–74; RESP 15–20; O2SAT 97–98
[~2023-09-10 05:41] MED LIST changes: +CART1TAB5 PO; -LEVO100T12 PO; -SACU1TAB PO; +SACU1TAB4 PO
[2023-09-10] MEDS: 0.9%NACL 1000ML 1,000 ML IV ONE (06:57)
[2023-09-10] MEDS ORDERED: ONDANSETRON 4MG INJ ONE (07:05)
[2023-09-10] MEDS ORDERED: ROCURONIUM BROMIDE 10MG/1ML 5ML VL ONE (07:05)
[2023-09-10] MEDS ORDERED: MIDAZOLAM HCL 1 MG/ML 2ML VIAL ONE (07:05)
[2023-09-10] MEDS ORDERED: PROPOFOL 10 MG/ML 20ML VIAL IV ONE (07:06)
[2023-09-10] MEDS ORDERED: PHENYLEPHRINE HCL 10 MG/ML 1ML VIAL IV ONE (07:28)
[2023-09-10] MEDS ORDERED: HEPARIN 10,000 UNIT/10ML (1,000 UNIT/ML) VIAL ONE (07:32)
[2023-09-10] MEDS ORDERED: LIDOCAINE HCL 400MG/20ML VIAL ONE (07:32)
[2023-09-10] MEDS ORDERED: PROTAMINE SULFATE 10 MG/ML 5 ML VIAL ONE (11:33)
[2023-09-10] MEDS ORDERED: MORPHINE 4 MG SYG ONE (12:08)
[2023-09-10] MEDS: SUCRALFATE 1 GM/10 ML PO SCH (15:12)
[2023-09-10] MEDS: BUSPIRONE HCL 5 MG TABLET PO SCH (15:12)
[2023-09-10] MEDS: PANTOPRAZOLE 40 MG TAB DR PO ONE (15:13)
[2023-09-10] MEDS: SACUBITRIL/VALSARTAN 1 EACH TABLET PO SCH (20:22)
[2023-09-10] MEDS: DRONEDARONE HYDROCHLORIDE 400 MG TABLET PO SCH (20:22)
[2023-09-10] MEDS: ATORVASTATIN 40 MG TABLET PO SCH (20:23)
[2023-09-10] MEDS: GABAPENTIN 300 MG CAPSULE PO SCH (20:23)
[2023-09-10] MEDS: APIXABAN 5 MG TABLET PO SCH (20:23)
[2023-09-10] MEDS: METOPROLOL SUCCINATE 50 MG TAB.SR.24H PO SCH (20:23)
[2023-09-11 00:01] VITALS: BP 93/47; PULSE 60; RESP 20
[2023-09-11 00:22] VITALS: BP 98/51
[2023-09-11 04:19] VITALS: BP 105/60; PULSE 62; RESP 20
[2023-09-11] MEDS: LEVOTHYROXINE 112 MCG TABLET PO SCH (06:30)
[2023-09-11 08:00] VITALS: BP 104/61; PULSE 68; RESP 18
[2023-09-11] MEDS: ASPIRIN 81 MG EC TAB PO SCH (09:00)
[2023-09-11 09:50] VITALS: O2SAT 97
[2023-09-11] MEDS: ESCITALOPRAM OXALATE 30 MG PO SCH (10:05)
[2023-09-11] MEDS: SPIRONOLACTONE 25 MG TAB PO SCH (10:05)
[2023-09-11] MEDS: PANTOPRAZOLE 40 MG TAB DR PO SCH (10:06)
[2023-09-11] MEDS: EMPAGLIFLOZIN 25MG TABLET PO SCH (10:07)
[2023-09-11] MEDS ORDERED: SUCR1TAB2 PO (10:33)
[2023-09-11] MEDS ORDERED: PANT40TA55 PO (10:33)
[2023-09-11] MEDS: POLYETHYLENE GLYCOL 3350 17 GM POWD.PACK PO SCH (11:47)
[2023-09-11 11:56] VITALS: BP 109/56; PULSE 65; RESP 18
== END 2023-09-11 15:25 | disposition home or self-care (01) ==
LOC: DAH 05:41 → DAHIP 05:42 → 2DH 14:19
PROVIDERS: ADMIT Internal Medicine Cardiovascular Disease; ATTEND Internal Medicine Cardiovascular Disease
DX: I48.19 Other persistent atrial fibrillation (principal); I47.20 Ventricular tachycardia, unspecified; I25.5 Ischemic cardiomyopathy; E78.5 Hyperlipidemia, unspecified; F41.9 Anxiety disorder, unspecified; Z79.899 Other long term (current) drug therapy
CPT/HCPCS: 80048; 85025; 85610; 85730; 36415; 93005 ×2; 93656; 93657; 85347 ×6; 93308; C1894 ×4; C1732 ×3; C1893; A4215 ×2; A4649 ×2; C1766; G0378 ×27; J3490 ×2; J7030; J2720; J1644 ×2; J2250; J2704; J2405; J2270; J2371; A4223 ×3; A4222; A4221; A4663; A4216; A4606

== ENCOUNTER → 2023-12-09 | Outpatient (CLI) | payer OTHER ==
[~2023-12-09] MED LIST changes: +PANT40TA55 PO; +SUCR1TAB2 PO
[2023-12-09 21:26] VITALS: PULSE 50; RESP 12
[2023-12-09 22:00] VITALS: PULSE 53; RESP 22
[2023-12-09 22:35] VITALS: PULSE 53; RESP 18
[2023-12-09 23:07] VITALS: PULSE 53; RESP 18
[2023-12-09 23:30] VITALS: PULSE 67; RESP 18
[2023-12-10] VITALS (18 sets, daily range): PULSE 43–86; RESP 9–29
== END | disposition home or self-care (01) ==
LOC: SLP 19:46
PROVIDERS: ATTEND Internal Medicine Pulmonary Disease
DX: G47.33 Obstructive sleep apnea (adult) (pediatric) (principal)
CPT/HCPCS: 95811

== ENCOUNTER → 2024-06-04 | Outpatient (CLI) | payer OTHER ==
--- NOTE | 2024-06-05 09:25 | HMCSR ---
APPROVED REPORT EXAM: Two-dimensional and M-mode echocardiogram with Doppler and color Doppler. INDICATION ICD: Chronic systolic heart failure I50.20 2D Dimensions RVDd3.6 cmLVEF(%)24.3 (>50%)LVED Vol(simp.)159.0 mL IVSd0.9 (0.7-1.1cm)FS(%)11 %LVES Vol(simp.)103.0 mL LVDd6.2 (3.8-5.6cm)Ao Root(2D)3.5 (2.0-3.7cm)LVEF(%, simp.)35 % PWd0.9 (0.7-1.1cm)LVOT diam2.4 (1.8-2.4cm)LA ESV INDEX (BP)45.23 mL/m2 LVDs5.5 (2.5-4.0cm)IVC diam1.5 cm Aortic Valve AoV Vmax1.9 m/[place] GR14.6 mmHgLVOT Vmax0.8 m/s AoV VTI0.4 mAo Mean GR8.1 mmHgLVOT VTI0.17 m KARISSA (VMAX)2.1 cm2Al P1/2T763 msAVA (VTI) 2.1 cm2 Mitral Valve MV E Glem284.9 cm/sDECEL Usrw783 ms MR Max PG71 mmHgP 1/2 T107 ms MVA (PHT)2.1 cm2 TDI E/E' Rajhtk11.4E/E' Bdelooc62.2 Pulmonary Valve PV Vmax0.8 m/sPV VTI0.17 mPV Mean GR2 mmHg PV Peak GR2.4 mmHgPI End Nancy. [place] 1.7 cm/s Tricuspid Valve TR Vmax2.4 m/sRAP (EST) 3 nwZqGNIZ49.8 mmHg TR Peak GR23.8 mmHg Left Ventricle The left ventricle is moderately dilated. Hypokinetic inferior wall. There is normal left ventricular wall thickness. LVEF is 30-35%. Indeterminate diastolic dysfunction. Right Ventricle The right ventricle is normal size. Right ventricular systolic function is reduced. Device lead is pr esent in the right ventricle. Atria The left atrium is moderately dilated. Secundum atrial septal defect vs PFO is present. The right atr ium is dilated. Aortic Valve Aortic valve is trileaflet. Aortic valve leaflets are sclerotic but open well. Moderate to severe aor tic regurgitation. There is no aortic valvular stenosis. Mitral Valve Mitral valve leaflets are sclerotic but open well. Mitral regurgitation is moderate. There is no mitr al valve stenosis. Tricuspid Valve The tricuspid valve leaflets appear normal. There is mild tricuspid regurgitation. Pulmonic Valve The pulmonic valve leaflets appears normal. There is moderate valvular regurgitation. Great Vessels The aortic root is normal in size. IVC is normal in size and collapses >50% with inspiration. Pericardium No pericardial effusion. Conclusion The left ventricle is moderately dilated. LVEF is 30-35%. Indeterminate diastolic dysfunction. Hypokinetic inferior wall. Right ventricular systolic function is reduced. Secundum atrial septal defect vs PFO is present. Moderate to severe aortic regurgitation. Mitral regurgitation is moderate. There is mild tricuspid regurgitation. Device lead is present in the right ventricle.
== END | disposition home or self-care (01) ==
LOC: SHCH 10:31
PROVIDERS: ATTEND Internal Medicine Cardiovascular Disease
DX: I08.8 Other rheumatic multiple valve diseases (principal); I50.22 Chronic systolic (congestive) heart failure
CPT/HCPCS: 93306